=== PATIENT | female | born 1950 | race Caucasian/White ===

== ENCOUNTER → 2023-06-12 06:21 | Day surgery (SDC) | payer MEDICARE, SELFPAY ==
[2023-06-12 08:00] LABS: Glucose - Point of Care 142 mg/dl (70-99)
== END ==
LOC: GI 06:21
PROVIDERS: ATTENDING PHYSICIAN Internal Medicine Gastroenterology
DX: Z12.11 Encounter for screening for malignant neoplasm of colon (principal); Z86.010 Personal history of colon polyps; K64.8 Other hemorrhoids; K57.30 Diverticulosis of large intestine without perforation or abscess without bleeding; K55.20 Angiodysplasia of colon without hemorrhage; D12.2 Benign neoplasm of ascending colon; K62.1 Rectal polyp; K63.5 Polyp of colon
CPT/HCPCS: 45380; 88305; 82962; 88342